=== PATIENT | male | born 1965 | race African-American/Black ===

== ENCOUNTER 2017-08-25 16:48 | Emergency (ER) | payer MEDICAID ==
[~2017-08-25] VITALS: Ht 175.3 cm; Wt 80.0 kg
[2017-08-25 20:00] VITALS: BP 122/74
[2017-08-25] MEDS ORDERED: BACITRACIN ZINC OINT UDPKT TOP ONE (20:00)
== END 2017-08-25 20:09 | disposition home or self-care (01) ==
LOC: ER 18:26
DX: T81.4XXA Infection following a procedure, initial encounter (principal); F17.200 Nicotine dependence, unspecified, uncomplicated
CPT/HCPCS: 99283